=== PATIENT | female | born 1970 | race Caucasian/White ===

== ENCOUNTER 2017-02-27 09:02 | Inpatient (IN) ==
[2017-02-27 09:30] LABS: Basophils % 0.3 %; Eosinophils # 0.2 K/mcL (0.0-0.6); Eosinophils % 1.7 %; Hematocrit 35.4 % (35.3-44.9); Hemoglobin 10.6 g/dL (11.5-15.4); Immature Granulocytes % 0.3 % (0-4); Lymphocytes # 1.6 K/mcL (0.6-4.6); Lymphocytes % 16.4 %; Mean Corpuscular HGB Conc 29.9 g/dL (31.6-35.5); Mean Corpuscular Hemoglobin 22.1 pg (28.0-33.3); Mean Corpuscular Volume 73.8 fL (83.0-100.0); Mean Platelet Volume 9.3 fL (9.4-12.4); Monocytes # 0.6 K/mcL (0.0-1.3); Monocytes % 5.9 %; Neutrophils # 7.1 K/mcL (1.6-8.9); Platelet Count 338 K/mcL (140-400); Red Cell Distribution Width 19.6 % (11.5-14.5); Segmented Neutrophils % 75.4 %
[2017-02-27 09:37] LABS: INR 0.9; Prothrombin Time 10.1 Seconds (9.4-12.1)
[2017-02-27 09:40] LABS: Activated Partial Thrombo Time 26.1 Seconds (26.0-36.0)
[2017-02-27 09:42] LABS: BUN/Creatinine Ratio 20 (6-26); Blood Urea Nitrogen 16 mg/dL (7-20); Carbon Dioxide 16 mEq/L (19-29); Chloride 105 mEq/L (98-109); Glucose 122 mg/dL (70-99); Osmolality,Calculated 288 (280-300); Potassium 4.2 mEq/L (3.5-4.5); Sodium 138 mEq/L (136-145); eGFR For African Americans > 60 (> 60); eGFR For Non-African Americans > 60 (> 60)
[2017-02-27] MEDS ORDERED: 0.9 % Sodium Chloride 500 ML ONE (09:43)
[2017-02-27] MEDS: Nitroglycerin 0.4 MG TAB.SUBL SL PRN ×3 (09:46→10:24)
[2017-02-27] MEDS: 0.9 % Sodium Chloride 1,000 ML IVC SCH ×2 (09:47→23:44)
[2017-02-27] MEDS ORDERED: Aspirin 81 MG TAB.CHEW PO STA (09:54)
[2017-02-27 10:03] LABS: Thyroid Stimulating Hormone 0.139 mcIU/mL (0.350-4.840)
--- NOTE | 2017-02-27 10:24 | Emergency Department Note ---
Disposition Clinical Impression: Elevated troponin, NSTEMI (non-ST elevated myocardial infarction) Chest pain Qualifiers: Chest pain type: other chest pain Qualified Code(s): R07.89 - Other chest pain Disposition: Admitted As Inpatient Condition: Good Time of Disposition: 11:24 Chest Pain HPI - General Chief Complaint: ED Chest Pain Stated Complaint: chest pain Time Seen by Provider: 02/27/17 09:08 Source: patient Limitations: no limitations Vital Signs Reviewed: Yes Nursing Notes Reviewed: Yes - History of Present Illness HPI Narrative: 47-year-old female half pack per day smoker and hypothyroidism presents with chest pain. States it started at 530 this morning upon awakening, associated diaphoresis, nausea, shortness of breath. She states she had a similar episode a month ago around , symptoms subsided after several hours. Nothing seems to make it better or worse. She continues to have discomfort at this time. Describes as a squeezing sensation located retrosternal with tingling down her arms. She reports sometimes she feels palpitations. She is compliant with her thyroid medication. Reports significant family cardiac history, father had a myocardial infarction age 35. She denies any prior cardiac evaluation. She denies any recent fever or chills. Denies any abdominal pain, vomiting. Denies any bloody stool, black tarry stools, and hemoptysis. She has been experiencing some hot flashes and takes an over-the- counter Amrin denies any hormone use. Denies history of blood clots, cancer, long-distance travel or hospitalization. Severity scale (1-10): 9 - Related Data Home Medications Medication Instructions Recorded Confirmed Amberen 1 tab PO DAILY 02/27/17 Levothyroxine Sodium 150 mcg PO DAILY 02/27/17 02/27/17 [Levothyroxine Sodium] Allergies Allergy/AdvReac Type Severity Reaction Status Date / Time No Known Allergies Allergy Verified 02/27/17 09:06 All systems ED: reviewed and negative except as stated. Review of Systems: As Per HPI Constitutional: Denies: fever, chills ENT ED: Denies: congestion, dysphagia Cardiovascular: Reports: chest pain, palpitations. Denies: dyspnea on exertion Respiratory: Reports: dyspnea. Denies: cough Gastrointestinal: Reports: nausea. Denies: abdominal pain, vomiting, melena, hematochezia Genitourinary: Denies: urgency, dysuria Musculoskeletal: Denies: back pain, neck pain Integumentary: Denies: rash Neurological: Denies: headache Chest Pain PMH - Past Medical History Medical history: Reports: no medical history Psychiatric history: Reports: no psych history - Social History Smoking Status: Current every day smoker Alcohol use: Reports: occasionally Drug use: Reports: none Physical Exam - General Limitations: no limitations General appearance: alert, in no apparent distress - Head Head exam: atraumatic, normocephalic, normal inspection - Eye Eye exam: Present: normal appearance, PERRL, EOMI - ENT ENT exam: normal exam, normal oropharynx, mucous membranes moist - Neck Neck exam: Present: normal inspection, full ROM, trachea midline. Absent: tenderness - Chest Chest inspection: Present: normal inspection, symmetric chest wall rise, tenderness (Midsternal) - Respiratory Respiratory exam: Present: normal lung sounds bilaterally. Absent: respiratory distress, wheezes - Cardiovascular Cardiovascular exam: Present: regular rate, normal rhythm, normal heart sounds - Abdominal Exam Abdominal exam: Present: soft, Non-Tender, normal bowel sounds. Absent: tenderness, distention, guarding, rebound, rigidity - Extremities Exam Extremities exam: Present: normal inspection, full ROM, normal capillary refill. Absent: tenderness, pedal edema, calf tenderness - Back Exam Back exam: Present: normal inspection, full ROM. Absent: tenderness, CVA tenderness (R), CVA tenderness (L), vertebral tenderness - Neurological Exam Neurological exam: Present: alert, oriented X3 - Psychiatric Psychiatric exam: Present: normal affect, normal mood - Skin Skin exam: Present: warm, dry, intact, normal color. Absent: diaphoresis Course - Reevaluation(s) Reevaluation #1: Patient had a elevated troponin 0.17. Full dose aspirin was given here. After a total of 3 nitro her pain resolved. A repeat EKG did not reveal any EKG changes. No significant ST elevation consistent with STEMI. She denies any bloody stool, black tarry stool, hemoptysis. Will treat her for elevated troponin and NSTEMI low-dose heparin. Patient has been tachycardic 100. D dimer was ordered to evaluate for possible PE, result 295. Patient will be admitted to the hospitalist service for chest pain, NSTEMI. Patients in agreement with plan. Impression is chest pain, NSTEMI, elevated troponin. - Consultations Consultation #1: Spoke with a starch cooker Dr. Cuello regarding the patient's troponin and EKG with subtle ST elevation, recommend low-dose heparin and to trend the troponin. Consultation #2: Spoke with on-call hospitalist sheela Vyas to admit for chest pain, NSTEMI, elevated troponin. No further orders at this time Vital Signs Temperature 98.3 F 02/27/17 09:03 Pulse Rate 103 02/27/17 09:03 Respiratory Rate 18 02/27/17 09:03 Blood Pressure 142/64 02/27/17 09:03 O2 Sat by Pulse Oximetry 99 02/27/17 09:03 Temperature 98.7 F 02/27/17 13:58 Pulse Rate 85 02/27/17 17:00 Respiratory Rate 20 02/27/17 17:00 Blood Pressure 120/62 02/27/17 17:00 O2 Sat by Pulse Oximetry 98 02/27/17 17:00 Oxygen Delivery Oxygen Delivery Room Air Chest Pain - MDM Narrative Medical decision making narrative: Patient was discussed with my attending physician who agrees with ED management and final disposition. They independently evaluated the patient. Please refer to their attestation to this encounter for additional information. This note was generated by [employer] voice recognition software and as a result grammatical or spelling errors may occur using this program. - Medical Records Medical records reviewed: Yes I reviewed the patient's medical records. - Lab Data Lab results reviewed: Yes I reviewed the patient's lab results. Result diagrams: 02/27/17 09:23 02/27/17 09:23 Lab Results 02/27/17 02/27/17 02/27/17 Range/Units 09:23 09:23 09:23 WBC 9.4 (4.3-11.1) K/mcL RBC 4.80 (3.82-4.97) M/mcL Hgb 10.6 L (11.5-15.4) g/dL Hct 35.4 (35.3-44.9) % MCV 73.8 L (83.0-100.0) fL MCH 22.1 L (28.0-33.3) pg MCHC 29.9 L (31.6-35.5) g/dL RDW 19.6 H (11.5-14.5) % Plt Count 338 (140-400) K/mcL MPV 9.3 L (9.4-12.4) fL Immature Gran % 0.3 (0-4) % Seg Neutrophils % 75.4 % Lymphocytes % 16.4 % Monocytes % 5.9 % Eosinophils % 1.7 % Basophils % 0.3 % Neutrophils # 7.1 (1.6-8.9) K/mcL Lymphocytes # 1.6 (0.6-4.6) K/mcL Monocytes # 0.6 (0.0-1.3) K/mcL Eosinophils # 0.2 (0.0-0.6) K/mcL Basophils # 0.0 (0.0-0.2) K/mcL PT 10.1 (9.4-12.1) Seconds INR 0.9 APTT 26.1 (26.0-36.0) Seconds D-Dimer 295 (0-500) ng/mLFEU Sodium 138 (136-145) mEq/L Potassium 4.2 (3.5-4.5) mEq/L Chloride 105 (98-109) mEq/L Carbon Dioxide 16 L (19-29) mEq/L BUN 16 (7-20) mg/dL Creatinine 0.80 (0.57-1.11) mg/dL Est GFR ( Amer) > 60 (> 60) Est GFR (Non-Af Amer) > 60 (> 60) BUN/Creatinine Ratio 20 (6-26) Glucose 122 H (70-99) mg/dL Calculated Osmolality 288 (280-300) Calcium 10.0 (8.6-10.8) mg/dL Troponin I (0-0.03) ng/mL TSH 0.139 L (0.350-4.840) mcIU/mL 02/27/17 Range/Units 09:23 WBC (4.3-11.1) K/mcL RBC (3.82-4.97) M/mcL Hgb (11.5-15.4) g/dL Hct (35.3-44.9) % MCV (83.0-100.0) fL MCH (28.0-33.3) pg MCHC (31.6-35.5) g/dL RDW (11.5-14.5) % Plt Count (140-400) K/mcL MPV (9.4-12.4) fL Immature Gran % (0-4) % Seg Neutrophils % % Lymphocytes % % Monocytes % % Eosinophils % % Basophils % % Neutrophils # (1.6-8.9) K/mcL Lymphocytes # (0.6-4.6) K/mcL Monocytes # (0.0-1.3) K/mcL Eosinophils # (0.0-0.6) K/mcL Basophils # (0.0-0.2) K/mcL PT (9.4-12.1) Seconds INR APTT (26.0-36.0) Seconds D-Dimer (0-500) ng/mLFEU Sodium (136-145) mEq/L Potassium (3.5-4.5) mEq/L Chloride (98-109) mEq/L Carbon Dioxide (19-29) mEq/L BUN (7-20) mg/dL Creatinine (0.57-1.11) mg/dL Est GFR ( Amer) (> 60) Est GFR (Non-Af Amer) (> 60) BUN/Creatinine Ratio (6-26) Glucose (70-99) mg/dL Calculated Osmolality (280-300) Calcium (8.6-10.8) mg/dL Troponin I 0.17 H* (0-0.03) ng/mL TSH (0.350-4.840) mcIU/mL - Radiology Data Radiology results reviewed: Yes I reviewed the patient's radiology results. Chest X-Ray 02/27/17 09:11 IMPRESSION: 1. No acute radiographic finding in the chest. D/ / Sumit Frausto MD / Sumit Frausto MD Interpreting Provider: Sumit Frausto MD - EKG Data EKG attestation: Yes I reviewed and interpreted this EKG. EKG results narrative: EKG performed normal sinus rhythm, normal axis, some minimal ST changes in the septal leads red as benign repolarization. Repeat EKG performed did not show any interval dynamic changes. No ST elevations or depression. No T wave inversion. No acute ischemia seen on EKG. Chest X-Ray 02/27/17 09:11 IMPRESSION: 1. No acute radiographic finding in the chest. D/ / Sumit Frausto MD / Sumit Frausto MD Interpreting Provider: Sumit Frausto MD Heart Score - Score History: Moderately Suspicious EKG: Normal Age: 45-65 Risk Factors: 1-2 risk factors Troponin: Greater than 3x normal limit HEART Score Total: 5 Attestation Statement - Attestation Attestation: I, Andrea Brand, examined this patient and my medical decision-making was reviewed with the [employer] LIAISON AND SPECIAL STAFF/PA/Advanced Practice Nurse/Resident Physician. I agree with the documented findings, disposition and treatment plan as described except to the extent set forth below. 47-year-old female presents emergency Department with concerns of acute onset chest pain. Patient states she had a similar occurrence within the past 2 weeks that lasted multiple hours and left her weak and fatigued afterwards. Patient states symptoms started about 8 AM today, described as a central pressure that radiates to her bilateral jaw and has paresthesias of the left upper extremity. Initial EKG showed normal sinus rhythm with a rate of 99 without obvious STEMI. Repeat EKG showed a normal sinus rhythm with a rate of 77. Patient had elevated troponin and resident spoke with the starch cooker regarding likely an STEMI. Patient pain improved significantly with nitroglycerin in the emergency department. She will be admitted to hospital for further care and evaluation of her likely NSTEMI.
[2017-02-27] MEDS ORDERED: *HR* Heparin 5,000 UNIT/ML VIAL IVP PRN ×2 (10:38)
[2017-02-27] MEDS ORDERED: *HR* Heparin 5,000 UNIT/ML VIAL IVP ONE (10:38)
[2017-02-27] MEDS ORDERED: Heparin 25,000 UNIT/500 ML D5W 25,000 UNIT/500 ML MLS IVC SCH (10:45)
[2017-02-27] MEDS ORDERED: *HR* Morphine 2 MG/ML SYRINGE IVP PRN (11:24)
[2017-02-27] MEDS ORDERED: Ondansetron 4 MG/2 ML VIAL IVP PRN (11:24)
[2017-02-27] MEDS ORDERED: Naloxone 0.4 MG/ML INJ IVP PRN (11:24)
[2017-02-27] MEDS ORDERED: *HR* HYDROcodone/Acet 5/325 mg TABLET PO PRN (11:24)
--- NOTE | 2017-02-27 11:45 | Internal Med History&Physical ---
Date of Encounter: 02/27/17 Time of Encounter: 10:30 Assessment and Plan (1) Chest pain Current visit: Yes Status: Acute Acute chest pain that pt. states began at 5 a.m. this morning and she describes as constant squeezing pressure in her heart w/radiation to bilateral arms causing numbness and tingling and bilateral jaws. Pt. reports same chest pain occurred the week before Thanksgiving. Denies previous cardiac hx, echocardiogram, stress test, angioplasty or stent placement. EKG today shows sinus rhythm with ST elevation, probably early repolarization. Initial troponin 0.17. Pt. given SL nitro x3 in ED and reports pain went from 8 to 4. Will trend troponin x2. Echocardiogram ordered stat. Continuous cardiac telemetry. Supplemental O2 and SpO2 monitoring PRN. Heparin drip started in ED and will be continued. NPO for now. Cardiology consult ordered and discussed w/Dr. Cuello's resident and I appreciate the consult. Pt. is at high risk for cardiac event based on current sx, risk factors of current tobacco abuse and father w/first CT @ 35, and hx of previous chest pain several weeks ago. Inpatient. Pt. discussed w/Dr. Youngblood who agrees w/plan of care. Qualifiers: Chest pain type: other chest pain Qualified Code(s): R07.89 - Other chest pain; R07.8 - Other chest pain (2) NSTEMI (non-ST elevated myocardial infarction) Current visit: Yes Status: Acute Pt. presents w/initial troponin of 0.17 and chest pressure that began at 5 a.m. this morning. Pt. describes pain as squeezing pressure in her heart w/radiation to bilateral arms causing numbness and tingling and bilateral jaws. Denies cardiac hx. Father had first CT @35. Echocardiogram ordered. Continuous cardiac telemetry. Will trend troponins x2. Cardiology consult ordered and discussed w/ Dr. Cuello's resident. Heparin drip started in ED. NPO for now. Heparin drip initiated in the ED and will be continued. EKG today shows sinus rhythm with ST elevation, probably early repolarization. (3) Abnormal hemoglobin (Hgb) Current visit: Yes Status: Acute Acutely abnormal Hgb of 10.6 on admission. Pt. denies hx of anemia or unusual bleeding. Will monitor H/H in a.m. labs. (4) Thyroid disease Current visit: Yes Status: Chronic Hx of chronic thyroid disease. Current TSH is 0.139 on admission. Continue pts. Levothyroxine. (5) Tobacco abuse Current visit: Yes Status: Chronic Hx of tobacco abuse. Pt. reports currently smoking 1/2 PPD. 14 mg nicotine patch ordered daily PRN. (6) DVT prophylaxis Current visit: Yes Status: Acute Pt. placed on heparin drip d/t current troponin of 0.17. Monitor pt. for signs of bleeding. Internal Medicine - H&P: HPI Chief complaint: Chest pain Admitted From: Emergency Dept Plans for Post Hospital Care: Home History of present illness: Ms. Gi Warner is a 47 year old female with medical hx of thyroid disease presents from the ED with chief complaint of chest pain that she states began at 5 a.m. this morning. Pt. describes the pain as squeezing pressure in her heart that is constant and that radiates to her bilateral arms causing numbness and tingling and to her bilateral jaws. She reports same sx the week before giving. Pt. was given nitro x3 in ED which she reports took pain from 8 to a 4. Denies hx of echocardiogram, stress test, angioplasty, or stent placement. Risk factors include current tobacco abuse and father had first CT @ age 35. Pt. denies recent illness, fever, chills, nausea, vomiting, diarrhea, constipation, heart palpitations, changes in vision, cough, abdominal pain, unusual bleeding, dizziness, lightheadedness, presyncope, or syncope. Past Med Surg Social Fam HX - Past Medical History Source: patient, old records reviewed, obtained from family Medical history: thyroid disease Psychiatric history: no psych history - Social History Smoking Status: Current every day smoker Packs per day: 1/2 PPD Smokeless Tobacco Status: No Alcohol use: occasionally Drug use: none Occupational status: employed Current living situation: Home, With Family Activity Level: Independent ambulation, Very active Recent Out of Country Travel Within the Last 8 Weeks: No Exposure or Possible Exposure to Illness During Travel: No - Family History Father Race: Family Member Ethnicity: Non- Living Status: Still Living Hx Family Cardiac Disorders: Yes (CT @35, Bypass surgery, Angioplasty/stents) Hx Family Endocrine Disorder: Yes (DM) Mother Race: Family Member Ethnicity: Non- Living Status: Still Living Hx Family Cardiac Disorders: Yes (TIAs) Hx Family Genitourinary Disorders: Yes (CKD) Hx Family Musculoskeletal Disorders: Yes (Fibromyalgia) Brother Race: Family Member Ethnicity: Non- Living Status: Still Living Hx Family Cardiac Disorders: Yes (CAD) Internal Medicine - H&P: Meds Amberen 1 tab PO DAILY 02/27/17 [History] Levothyroxine Sodium [Levothyroxine Sodium] 150 mcg PO DAILY 02/27/17 [History] 3 Allergy/AdvReac Type Severity Reaction Status Date / Time No Known Allergies Allergy Verified 02/27/17 09:06 All Systems PM: A 10-system review of systems was performed and is negative for pertinent findings except as documented above in the HPI. - Constitutional Constitutional: no chills, no fever(s), no night sweats - EENT Eyes: no change in vision, no discharge, no pain, no photophobia Ears: no ear discharge, no ear pain, no tinnitus Nose, mouth and throat: no dysphagia, no nasal discharge, no neck pain, no sore throat - Breasts Breasts: as per HPI - Cardiovascular Cardiovascular ROS IM: as per HPI, chest pain - Respiratory Respiratory: no cough, no dyspnea, no wheezing, no excessive phlegm production - Gastrointestinal Gastrointestinal: no abdominal pain, no diarrhea, no hematemesis, no hematochezia, no melena, no nausea, no vomiting - Genitourinary Genitourinary: no change in urinary stream, no dysuria, no flank pain, no hematuria Menstruation: as per HPI - Musculoskeletal Musculoskeletal ROS IM: no numbness, no tingling - Integumentary Integumentary IM: no rash, no unusual bruising - Neurological Neurological ROS: no confusion, no convulsions, no focal weakness, no numbness, no tingling, no tremor(s) - Psychiatric Psychiatric: as per HPI - Endocrine Endocrine IM: as per HPI - Hematologic/Lymphatic Hematologic/Lymphatic: no easy bruising - Allergic/Immunologic Allergic/Immunologic: as per HPI - Constitutional Vitals: Temp Pulse Resp BP Pulse Ox 98.3 F 86 18 134/78 98 02/27/17 09:03 02/27/17 10:25 02/27/17 11:35 02/27/17 11:35 02/27/17 10:25 General appearance: Present: cooperative, mild distress (Chest pressure), A&O X 3, pleasant, obese, answers questions appropriately - Head Head exam: Present: atraumatic, normal inspection, normocephalic - Eye Eye exam: Present: PERRL, conjuntiva pink, sclera anicteric Pupils: Present: PERRL - ENT ENT exam: Present: normal exam, normal external ear exam - Neck Neck exam general surgery: Present: normal inspection, supple, trachea midline. Absent: lymphadenopathy - Respiratory Respiratory exam: Present: CTAB. Absent: accessory muscle use, rales, rhonchi, wheezes - Cardiovascular Cardiovascular exam: Present: RRR, +S1, +S2. Absent: diastolic murmur, gallop, rubs, systolic murmur - GI/Abdominal GI/Abdominal exam: Present: normal bowel sounds, soft, no peritoneal signs. Absent: distended, tenderness - Rectal Rectal exam: Present: deferred - Additional comments: exam deferred. - Extremities Exam Extremities exam: Present: warm, radial pulses palpable and symmetrical. Absent : calf tenderness, cyanotic, pedal edema - Back Exam Back exam: Present: normal inspection - Neurological Exam Neurological exam: Present: CN II-XII intact, oriented X3, no focal deficits. Absent: pronater drift, facial droop, speech deficit - Psychiatric Psychiatric exam: Present: normal affect, normal mood - Skin Skin exam: Present: dry, intact Internal Med - H&P Results - Labs CBC & Chem 7: 02/27/17 09:23 02/27/17 09:23 - EKG Data EKG shows normal: sinus rhythm - EKG Data Prior EKG available for review: yes When compared to previous EKG: there is no significant change EKG comments: 02/27/17 11:50 Three sequential EKGs taken today (02/27/17) at 09:07, 09:16, and 10:02 show sinus rhythm with ST elevation, probably early repolarization (EST elevation with normally inflected T-wave). Borderline ECG. - Diagnostic Studies Chest x-ray Additional comments: Impressions Chest X-Ray 02/27/17 09:11 IMPRESSION: 1. No acute radiographic finding in the chest. D/ / Sumit Frausto MD / Sumit Frausto MD Interpreting Provider: Sumit Frausto MD
--- NOTE | 2017-02-27 12:19 | Pre-Sedation Evaluation ---
Pre-sedation evaluation - Pre-sedation checklist Date of procedure: 02/27/17 Procedure: [facility] Recent Vitals: Last Vital Signs Temp 98.3 F 02/27/17 09:03 Pulse 86 02/27/17 10:25 Resp 18 02/27/17 11:35 BP 134/78 02/27/17 11:35 Pulse Ox 98 02/27/17 10:25 H&P (including ROS) documented in medical record: Yes Previous reaction to sedatives/anesthetics: No Dietary Status: Clear fluids after Midnight Airway Assessment: Patient can open mouth completely, TMJ function normal, Micrognathia (under-bite, receding chin) absent, Neck with adequate range of motion Dentition: No loose teeth or bridges Possible difficult airway: No ASA Classification *see protocol: CLASS II-Mild systemic disease Plan of Care: Pt appropriate candidate for procedure/moderate/conscious sedation , Risks/benefits of procedure/sedation discussed w/ patient/family
--- NOTE | 2017-02-27 12:20 | Cardiology Consult Note ---
<Cary Peña - Last Filed: 02/27/17 12:21> Date of Encounter: 02/27/17 Time of Encounter: 12:00 Assessment and Plan (1) NSTEMI (non-ST elevated myocardial infarction) Current Visit: Yes Status: Acute Per cardiology: -Presented with chest pain. -Initial troponin 0.17. -ECG with ST segment changes noted in leads I, aVL, V5, V6. -Admits to current chest pain, rates 3/10. -ON heparin drip. -TTE pending. -Started asa, statin, beta nancy. -Plan for urgent LHC. Risks versus benefits of LHC explained to patient and family. Patient states understanding and agreeable to proceed. -Further recommendations pending LHC. (2) Tobacco abuse Current Visit: Yes Status: Chronic Per cardiology: -Admits to current smoking. -Nicotine patch ordered per primary service. -I spent 3 minutes reviewing smoking cessation education with patient. Discussion w patient/family: The assessment and plan as outlined above was discussed with the patient and/or family members who expressed understanding and agreement. All questions were answered. Thank you for involving us in the care of your patient. Please call with any questions. Discussed and reviewed with . History of Present Illness Consult date: 02/27/17 Requesting physician: Michael Biswas Consult reason: elevated troponin Chief complaint: chest pain History of present illness: Ms. Gi Warner is a 47 year old female with a relevant past medical history of smoking. Patient reports family history of CAD with father having WI at age 25 that required CABG. Patient reports over the past couple of months has had intermittent chest pain. Patient states pain typically occurs at rest. Patient states was awaken this morning about 0530 by sharp midsternal chest pain. Patient states pain was a 9/10. Denies aggravating or alleviating factors. Reports associated nausea. Patient states has current 3/10 chest pain. Patient states pain was lessened by nitro. Past Med Surg Social Fam HX - Past Medical History Attestation: Yes The following information was validated with the patient. Source: patient Medical history: thyroid disease Psychiatric history: no psych history - Social History Smoking Status: Current every day smoker Packs per day: 1/2 PPD Smokeless Tobacco Status: No Alcohol use: occasionally Drug use: none - Family History Father Race: Family Member Ethnicity: Non- Living Status: Still Living Hx Family Cardiac Disorders: Yes (WI @35, Bypass surgery, Angioplasty/stents) Hx Family Endocrine Disorder: Yes (DM) Mother Race: Family Member Ethnicity: Non- Living Status: Still Living Hx Family Cardiac Disorders: Yes (TIAs) Hx Family Genitourinary Disorders: Yes (CKD) Hx Family Musculoskeletal Disorders: Yes (Fibromyalgia) Brother Race: Family Member Ethnicity: Non- Living Status: Still Living Hx Family Cardiac Disorders: Yes (CAD) Medications and Allergies Amberen 1 tab PO DAILY 02/27/17 [History] Levothyroxine Sodium [Levothyroxine Sodium] 150 mcg PO DAILY 02/27/17 [History] 3 Allergy/AdvReac Type Severity Reaction Status Date / Time No Known Allergies Allergy Verified 02/27/17 09:06 All Systems Review: A 10-system review of systems was performed and is negative for pertinent findings except as documented above in the HPI. - Cardiovascular Cardiovascular: as per HPI, chest pain at rest - Gastrointestinal Gastrointestinal: nausea Physical Examination Vital Signs, Last 4 Hours Resp BP 02/27/17 11:35 18 134/78 General: Conversant, No Apparent Distress HEENT: Atraumatic, Normocephaly, Mucus Membranes Moist Neck: No JVD, Normal carotid pulses Cardiac: Reg Rate and Rhythm, Normal S1 and S2, No Murmur Lungs: Normal Breath Sounds, No Wheeze, Rales, Rhonchi Neuro: Alert and responsive, No focal deficits noted Abdomen: Soft, Non-Tender Skin: No rashes noted on visualized skin Musculoskeletal: No Chest Wall Tenderness Extremities: No Clubbing, No Cyanosis, No Edema, Normal Pulses Results 02/27/17 09:23 02/27/17 09:23 Impressions Chest X-Ray 02/27/17 09:11 IMPRESSION: 1. No acute radiographic finding in the chest. D/ / Sumit Frausto MD / Sumit Frausto MD Interpreting Provider: Sumit Frausto MD Active Medications Acetaminophen (Tylenol) 650 mg PO Q6HR PRN PRN Reason: Mild Pain (1-3) Stop: 08/29/17 11:25 Hydrocodone Bitart/Acetaminophen (Barton 5-325 Mg) 1 tab PO Q4HR PRN PRN Reason: Moderate Pain (4-6) Stop: 08/29/17 11:25 Aspirin (Aspirin Ec) 81 mg PO DAILY [facility] Stop: 08/30/17 09:01 Atorvastatin Calcium (Lipitor) 40 mg PO HS [facility] Stop: 08/29/17 21:01 Heparin Sodium (Porcine) (Heparin) 4,000 unit IVP Q6HR PRN PRN Reason: SEE COMMENTS Stop: 08/29/17 10:39 Heparin Sodium (Porcine) (Heparin) 2,000 unit IVP Q6H PRN PRN Reason: SEE COMMENTS Stop: 08/29/17 10:39 Sodium Chloride (0.9 % Sodium Chloride) 1,000 mls @ 75 mls/hr IVC .[id number] [facility] Stop: 08/29/17 09:46 Last Admin: 02/27/17 09:47 Dose: 75 mls/hr Heparin Sodium/Dextrose (Heparin 25,000 Unit/500 Ml D5w) 25,000 unit in 500 mls @ 17.962 mls/hr IVC .Q24H [facility]; 12 UNIT/KG/HR PRN Reason: Protocol Stop: 08/29/17 10:46 Last Admin: 02/27/17 11:06 Dose: 12 unit/kg/hr, 17.962 mls/hr Levothyroxine Sodium (Synthroid) 150 mcg PO DAILY [facility] Stop: 08/30/17 09:01 Metoprolol Tartrate (Lopressor) 12.5 mg PO BID [facility] Stop: 08/29/17 21:01 Morphine Sulfate (Morphine Sulfate) 2 mg IVP Q4HR PRN PRN Reason: Severe Pain (7-10) Stop: 08/29/17 11:25 Last Admin: 02/27/17 12:07 Dose: 2 mg Naloxone HCl (Narcan) 0.4 mg IVP Q2MIN PRN PRN Reason: Opioid Reversal Stop: 08/29/17 11:25 Nicotine (Nicoderm) 14 mg TD DAILY [facility] PRN Reason: Protocol Stop: 08/29/17 12:01 Nitroglycerin (Nitroglycerin) 0.4 mg SL Q5MIN PRN PRN Reason: Chest Pain Stop: 06/09/18 09:32 Last Admin: 02/27/17 10:24 Dose: 0.4 mg Ondansetron HCl (Zofran) 4 mg IVP Q8HR PRN PRN Reason: Nausea And Vomiting Stop: 08/29/17 11:25 Laboratory Tests 02/27/17 02/27/17 02/27/17 09:23 09:23 09:23 Hgb 10.6 L Creatinine 0.80 Troponin I 0.17 H* - Imaging and Cardiology Chest Xray: report reviewed Echo: pending Cardiac cath: pending - EKG Interpretation EKG results cardiology: personally reviewed (ECG with SR, HR 99. ST segment changes noted in leads I, V5 and V6.) Consult Discharge Plan - Plan Referrals: Onur Foley MD [Primary Care Provider] - <Bne Cuello - Last Filed: 02/27/17 12:54> Date of Encounter: 02/27/17 - Attending Attestation I have personally performed a face to face evaluation on this patient. I have reviewed and agree with the care plan. History and Exam by me shows: 47 YOF with unstable angina, stuttering WI with lateral EKG changes and ongoing CP. R/B/A D/W patient and she agrees to proceed with a C. Assessment and Plan Discussion w patient/family: The assessment and plan as outlined above was discussed with the patient and/or family members who expressed understanding and agreement. All questions were answered. Thank you for involving us in the care of your patient. Please call with any questions. History of Present Illness History of present illness: Ms. Gi Warner is a 47 year old female All Systems Review: A 10-system review of systems was performed and is negative for pertinent findings except as documented above in the HPI. Physical Examination Vital Signs, Last 4 Hours Temp Pulse Resp BP Pulse Ox 02/27/17 12:22 98.6 F 87 18 130/85 96 02/27/17 11:35 18 134/78 Results 02/27/17 09:23 02/27/17 09:23
[2017-02-27] MEDS ORDERED: Nitroglycerin 1,000 MCG/10 ML VIAL IV ONE (12:30)
[2017-02-27] MEDS ORDERED: *HR* Heparin 10,000 UNIT/10 ML VIAL ONE (12:30)
[2017-02-27] MEDS ORDERED: Heparin 1,000 UNITS/500 mL NS 500 ML ONE (12:30)
[2017-02-27] MEDS ORDERED: 0.9 % Sodium Chloride 1,000 ML ONE ×2 (12:30→13:00)
[2017-02-27] MEDS ORDERED: *HR* FentaNYL (PF) 100 MCG/2 ML VIAL ONE (12:58)
[2017-02-27] MEDS ORDERED: *HR* Midazolam HCl 2 MG/2 ML VIAL ONE (12:58)
[2017-02-27] MEDS ORDERED: *HR* Bivalirudin 250 MG VIAL IVC ONE (13:12)
[2017-02-27] MEDS ORDERED: *HR* Ticagrelor 90 MG TABLET ONE (13:26)
--- NOTE | 2017-02-27 13:49 | Invasive Diagnostic Lab Proc ---
Name: Hilda Wang Date of Study: 02/27/2017 Date: 1970 Ht: 61.8in Medical Record#: [id number] Age: 47 Wt: 163.14lb Gender: Female BSA: 1.75 Order #: [id number] BMI: 30.02 Physicians Procedure Physician: Meenu Tay MD, [facility] Referring MD: Referring MD: Staff Name Position Time In Sites, Rachel RT (R) Monitor 12:46 PM Pastor Hernandez RN Kiss Setter Hand 12:47 PM Jannet Das RT Scrub 12:47 PM Indications Indication Non-Stemi Procedures Performed Procedure L HRT ARTERY/VENTRICLE ANGIO PRQ CARD TOM STENT W/ANGIO 1 VSL Pre-Procedure Checklist Informed consent is complete signed and on chart. H&P is on chart. ID band is on and ID verified with patient. Patient NPO for procedure The procedure was described for the patient and questions were answered. Blood Pressure: 130/85 ECG is on chart. Rhythm: NSR Plan of Care Patient will tolerate the procedure without complications. Adequate level of comfort will be maintained. Hemodynamics will remain stable Patient will recover from procedure without complications. Respiratory function will be maintained. Cardiac rhythm will remain stable. Patient temperature will be maintained. Patient and/or family have verbalized understanding of the procedure. Patient Education Chief Complaint/Reason for Test: Cardiac Cath Developmental Category: Adult (18-64 years) Developmentally Appropriate for Age: Yes Learning Barriers: None Education Needs: Procedure Education Method: Verbal Information Taught: Cardiac Cath Educational Evaluation: Able to repeat information Intravenous Access Time IV Size Location DC'd Fluid/Drip Rate Units RN 20g 1 /" Patent On Arrival Lt Antecubital 0.9NaCl 25 ml/hr Pastor Hernandez RN Allergies No Known Allergies Vital Signs Time BP (mmHg) HR (bpm) O2 Sat. RR (bpm) LOC 12:54 PM 155 / 93 190 100 % 10 12:59 PM 153 / 84 95 99 % 33 01:04 PM 145 / 76 96 100 % 21 01:09 PM 138 / 79 99 100 % 21 01:14 PM 140 / 89 98 100 % 17 01:20 PM 160 / 134 96 100 % 14 01:25 PM 154 / 84 96 99 % 01:30 PM 141 / 98 103 100 % 21 Procedural Medications Time Medication Dose Units Method Given By 12:54 PM Oxygen 2 L/min nasal cannula Pastor Hernandez RN 01:03 PM Versed 2 mg Intravenous Pastor Hernandez RN 01:03 PM Fentanyl 50 mcg Intravenous Pastor Hernandez RN 01:03 PM Lidocaine 2% 20 ml Subcutaneous Meenu Tay MD, FAC 01:22 PM Nitroglycerin 200 mcg Intracoronary Meenu Tay MD, FAC 01:29 PM Reopro Bolus: 9.2 ml Intravenous Pastor Hernandez RN 01:29 PM Brilinta 180 mg Orally Pastor Hernandez RN ASA Classification: CLASS II- Mild systemic disease (i.e. well-controlled diabetes, hypertension, asthma, cigarette smoking) Shanon Score Preprocedure Postprocedure Activity 2- Moves 4 extremities sustained head lift Activity 2- Moves 4 extremities sustained head lift Circulation 2- SBP +/= 20 points of pre-anesthetic level Circulation 2- SBP +/= 20 points of pre-anesthetic level Consciousness 2- Awake and alert oriented x 3 Consciousness 2- Awake and alert oriented x 3 O2 Saturation 2- Able to maintain O2 satruation of 92% on room air O2 Saturation 2- Able to maintain O2 satruation of 92% on room air Respiratory 2- Able to deep breathe and cough well Respiratory 2- Able to deep breathe and cough well Total Score 10 Total Score 10 Contrast Agent: Isovue Diagnostic Contrast: 151 ml Total Contrast: 151 ml Fluoro Dose: 348 mGy Procedure Log Time Note Enter By 12:45 PM CathStat 12:46 PM Pt arrived to refuse laborer 2 at 12:46 [email or web address] 12:46 PM Rachel Arteaga RT (R) Position: Monitor Time in: 12:46 [email or web address] 12:47 PM Pastor Hernandez RN Position: Kiss Setter Hand Time in: 12:47 [email or web address] 12:47 PM Jannet Das RT Position: Scrub Time in: 12:47 [email or web address] 12:47 PM Patient charges- Angio tray pack, Navilyst 3mm J, Pulse Oximetry and ACIST tubing and transducer [email or web address] 12:47 PM Case Delayed No [email or web address] 12:47 PM Physician arrived 12:47 [email or web address] 12:47 PM Meet and greet completed [email or web address] 12:47 PM Sign in performed according to hospital policy. [email or web address] 12:47 PM Procedure start 12:47 [email or web address] 12:54 PM Vitals capture started with the following parameters, Patient=Adult, Interval=5 min, Initial Zaqkjmiq=386 mmHg, Deflation Rate=5 mmHg, Cuff placed on Right Arm 12:54 PM Time: 12:54 Oxygen on at 2 L/min per nasal cannula by Pastor Hernandez RN tsites 12:54 PM MD=061 bpm, VHEB=195/93 mmhg, UbH5=404.0 %, Resp=10 B/min 12:56 PM Recorded ECG: DF=883 Condition=Condition 1 12:59 PM HR=95 bpm, MWIE=373/84 mmhg, SpO2=99.0 %, Resp=33 B/min 01:02 PM Pressure channel 1 zero failed. 01:02 PM Pressure channel 1 zero failed. 01:02 PM Pressure channel 1 zeroed. 01:03 PM Hair removed from procedure site in holding area using clippers. Bilateral groin prepped with Chloraprep by Chandler, Rachel RT (R), safety strap applied then patient was draped. Skin intact. tsites 01:03 PM Time out performed according to hospital policy tsites 01:03 PM Time: 13:03 Versed 2 mg Intravenous Given by Pastor Hernandez RN tsites 01:03 PM Time: 13:03 Fentanyl 50 mcg Intravenous Given by Pastor Hernandez RN tsites 01:03 PM Time: 13:03 20 ml Lidocaine 2% to right groin Subcutaneous Given by Meenu Tay MD, [facility] tsites 01:04 PM Access obtained by percutaneous puncture. 6Fr 10cm Terumo [place] sheath placed in right Femoral artery. [id number] tsites 01:04 PM HR=96 bpm, IEWY=421/76 mmhg, LkS6=936 %, Resp=21 B/min 01:05 PM 5Fr FL 4 catheter inserted over the wire [facility] tsites 01:05 PM 0.035 145cm Navilyst 3mmJ wire [id number] tsites 01:05 PM LCA angiography performed in multiple views. tsites 01:06 PM Recorded Pressure: Ao, HR=88, Condition=Condition 1 (Aorta) Ao 184/73/101 01:08 PM wire reinserted catheter removed tsites 01:09 PM RCA angiography performed in multiple views. tsites 01:09 PM Recorded Pressure: Ao, YX=289, Condition=Condition 1 (Aorta) Ao 120/50/88 01:09 PM wire reinserted catheter removed tsites 01:09 PM HR=99 bpm, HCBY=466/79 mmhg, MkQ5=855.0 %, Resp=21 B/min 01:10 PM Coronary Dominance: right tsites 01:10 PM 5Fr Pigtail catheter inserted over the wire [facility] tsites 01:10 PM Catheter selectively placed in left ventricle tsites 01:10 PM Bolus angiogram of left Ventricle complete: 8 ml/sec for a total of 24 mls tsites 01:10 PM Pressure channel 1 zeroed. 01:11 PM Recorded Pressure: LV, QD=277, Condition=Condition 1 (Left Ventricle) LV 120/1/21 01:11 PM Recorded Pressure: LV, Ao, CF=882, Condition=Condition 1 (Left Ventricle) LV 125/45/56, (Aorta) Ao 111/81/97 01:14 PM wire reinserted catheter removed tsites 01:14 PM HR=98 bpm, ELCE=174/89 mmhg, YqG1=126.0 %, Resp=17 B/min 01:15 PM PCI Status Emergency tsites 01:15 PM PCI Indication: PCI for high risk Non-STEMI or unstable angina tsites 01:16 PM 6Fr XB LAD 3.5 [place] Bright-Tip guide catheter was used to cannulate the PCI vessel successfully. reused? No tsites 01:16 PM Inflation device was opened. tsites 01:16 PM .014 [place]rowater 180cm guide wire across target lesion- successful. reused? No tsites 01:16 PM Recorded Pressure: Ao, HR=97, Condition=Condition 1 (Aorta) Ao 133/78/104 01:18 PM 3.5mm x 16mm Synergy drug-eluting stent across target lesion- successful Lot #[id number] tsites 01:20 PM Stent deployed @ 11 rafaela for 22 seconds tsites 01:20 PM HR=96 bpm, MGNU=011/134 mmhg, UsQ8=262 %, Resp=14 B/min 01:21 PM Balloon inflated @ 12 rafaela for 10 seconds tsites 01:22 PM Stent delivery system removed intact. tsites 01:23 PM Time: 13:22 Nitroglycerin 200 mcg Intracoronary Given by Meenu Tay MD, [facility] tsites 01:24 PM LCA angiography performed in multiple views. tsites 01:25 PM HR=96 bpm, BXGF=571/84 mmhg, SpO2=99.0 % 01:25 PM Catheter removed tsites : PM Bolus angiogram of right Femoral complete: 2 ml/sec for a total of 4 mls tsites : PM Procedure completed at 13:26 tsites : PM Sign out completed: Radiation Dose 348 mGy Fluoro Time: 4.7 Isovue 370 - 200ml contrast 151 ml given by Meenu Tay MD, [facility]. Complications: NoneCardiac Rehab Consult needed: YesConfirmed administered medications: Yes tsites 01:27 PM Isovue 370 - 200ml,1 Bottle(s) used. tsites :27 PM Sheath left in place to be pulled on floor/holding areaV+Pad tsites 01:27 PM Estimated Blood Loss: less than 20cc tsites 01:28 PM Post ECG NSR tsites : PM Post Blood Pressure 154/84 tsites :28 PM 13:28 Post Pulses Bilateral DP & PT 1+ tsites 01:28 PM Information taught Cardiac Cath and PCI tsites 01:28 PM Education needs Procedure, Plan of Care, and Responsibilities of Patient in Care tsites 01:28 PM Learning barriers :None tsites 01:28 PM Education Methods Verbal tsites 01:28 PM Education evaluation Able to repeat information tsites 01:29 PM Site status No bleeding/hematoma - Rt Groin as reported by Jannet Das RT at 13:28 tsites 01:29 PM Opsite applied tsites : PM Time: 13:29 Reopro Bolus: 9.2 ml Intravenous Given by Pastor Hernandez RN Almazan pump tsites 01:30 PM QT=031 bpm, ROKH=686/98 mmhg, VdX5=478 %, Resp=21 B/min 01:30 PM Time: 13:29 Brilinta 180 mg Orally Given by Pastor Hernandez RN tsites 01:31 PM Plavix, Effient or Brilinta given Yes tsites 01:31 PM Delay to floor No tsites 01:31 PM Patient out of room: 13:31 tsites 01:31 PM Family placed in consult room. tsites 01:32 PM Lesion found in LMCA. Pre Stenosis: 15 Pre MICHELET Flow: tsites 01:32 PM Lesion found in Proximal LAD. Pre Stenosis: 80 Pre MICHELET Flow: tsites 01:32 PM Left Main Coronary Artery with 15% stenosis tsites 01:33 PM Proximal Left Anterior Descending Coronary Artery with 80% stenosis. If graft is supplying this territory, 0 % stenosis. tsites 01:41 PM Report given to milagro KRAUS Pt taken to ICU Room #11. 13:41 tsites Complications Complication None Hemodynamics Pressures Site Systolic/A Wave Diastolic/V Wave Mean AO 184 73 101 AO 120 50 88 LV 120 1 21 LV 125 45 56 AO 111 81 97 AO 133 78 104 Post Procedure Information Blood Pressure: 154/84 mmHg Rhythm: NSR Post procedural instructions were given Closure Device Time Device Success/Fail 02/27/2017 1:31:00 PM Manual Compression Site Checks Time Location Status Staff Sheath In? Note 01:28 PM Rt Groin No bleeding/hematoma Jannet Das RT Pulses Time Site Pre-Procedure Post-Procedure Note Bilateral DP & PT 1+ 1:28:00 PM Bilateral DP & PT 1+ Updated by Rachel Arteaga RT (R) on 02/27/2017 1:42:06 PM Rachel Arteaga RT electronically signed on 02/27/2017 1:42:23 PM with status of Final
[2017-02-27] MEDS: Nicotine 14 MG PATCH.TD24 TD SCH (14:07)
--- NOTE | 2017-02-27 14:44 | Event Note ---
Date of Encounter: 02/27/17 Time of Encounter: 11:00 Discussed with EMILY in the [place] assessment and plan. Cardiology consulted for chest pain secondary to non-STEMI
[2017-02-28 04:55] LABS: Basophils % 0.2 %; Eosinophils # 0.1 K/mcL (0.0-0.6); Eosinophils % 1.5 %; Hematocrit 30.3 % (35.3-44.9); Hemoglobin 9.2 g/dL (11.5-15.4); Immature Granulocytes % 0.4 % (0-4); Lymphocytes # 1.9 K/mcL (0.6-4.6); Lymphocytes % 21.7 %; Mean Corpuscular HGB Conc 30.4 g/dL (31.6-35.5); Mean Corpuscular Hemoglobin 22.2 pg (28.0-33.3); Mean Platelet Volume 9.3 fL (9.4-12.4); Monocytes # 0.6 K/mcL (0.0-1.3); Monocytes % 6.5 %; Neutrophils # 6.2 K/mcL (1.6-8.9); Platelet Count 238 K/mcL (140-400); Red Blood Count 4.15 M/mcL (3.82-4.97); Red Cell Distribution Width 19.6 % (11.5-14.5); Segmented Neutrophils % 69.7 %
[2017-02-28 05:03] LABS: Hemoglobin A1C 5.4 %
[2017-02-28 05:08] LABS: Alanine Aminotransferase 34 Units/L (0-55); Albumin 2.9 g/dL (3.5-5.0); Alkaline Phosphatase 130 Units/L (38-126); Aspartate Amino Transferase 87 Units/L (5-34); BUN/Creatinine Ratio 19 (6-26); Bilirubin,Total 0.3 mg/dL (0.2-1.2); Blood Urea Nitrogen 13 mg/dL (7-20); Calcium 8.5 mg/dL (8.6-10.8); Carbon Dioxide 22 mEq/L (19-29); Chloride 109 mEq/L (98-109); Chol/HDL Ratio 3.5 (0-4.9); Cholesterol 152 mg/dL (< 200); Glucose 111 mg/dL (70-99); HDL Cholesterol 43 mg/dL (40-59); LDL Cholesterol,Calculated 87 mg/dL (0-99); Magnesium 1.8 mg/dL (1.6-2.6); Osmolality,Calculated 289 (280-300); Potassium 3.9 mEq/L (3.5-4.5); Sodium 139 mEq/L (136-145); Total Protein 5.9 g/dL (6.0-8.3); Triglycerides 111 mg/dL (< 150); eGFR For African Americans > 60 (> 60); eGFR For Non-African Americans > 60 (> 60)
[2017-02-28] MEDS: Aspirin Enteric Coated 81 MG Tablet PO SCH (08:21)
[2017-02-28] MEDS: Nicotine 14 MG PATCH.TD24 TD SCH (10:46)
[2017-02-28] MEDS: Isosorbide MONOnitrate (24 HR) 30 MG TAB.ER.24H PO SCH (13:03)
[2017-02-28] MEDS: *HR* Ticagrelor 90 MG TABLET PO SCH ×2 (13:03→20:57)
--- NOTE | 2017-02-28 13:06 | Cardiology Progress Note ---
Date of Encounter: 02/28/17 Time of Encounter: 12:30 Assessment and Plan (1) NSTEMI (non-ST elevated myocardial infarction) Current Visit: Yes Status: Acute Per cardiology: -Presented with chest pain. -S/p C yesterday with 80% proximal LAD stenosis with clot. TOM placed. -Patient reports 1/10 chest pain now. -ON asa, statin, plavix, beta nancy, chris inhibitor. -Patient educated on importance of dual anti-platelet therapy uninterrupted for at least one year. -TTE pending. -ECG today with SR, HR 80. T wave inversions noted in leads V2, V3, V4, V5, V6. ECG reviewed with . -Per discussion with , will start imdur and will switch plavix to brilinta 90mg BID first dose now. -Per discussion with , will start aggrastat drip. Will continue aggrastat drip for 6 hours. -Will continue to montior. (2) Tobacco abuse Current Visit: Yes Status: Chronic Per cardiology: -Admits to current smoking. -Nicotine patch ordered per primary service. -I spent 3 minutes reviewing smoking cessation education with patient. Discussion w patient/family: The assessment and plan as outlined above was discussed with the patient and/or family members who expressed understanding and agreement. All questions were answered. Thank you for involving us in the care of your patient. Please call with any questions. Discussed and reviewed with . Subjective Principal diagnosis: NSTEMI Interval history: Patient states pain is much improved since admission. Currently states has chest pain /. Denies issues walking or using right leg. Objective Vital Signs, Last 4 Hours Temp Pulse Resp BP Pulse Ox 02/28/17 12:55 97.9 F 02/28/17 12:00 85 18 109/47 94 02/28/17 10:00 90 18 106/47 94 General: Conversant, No Apparent Distress HEENT: Atraumatic, Normocephaly, Mucus Membranes Moist Neck: No JVD, Normal carotid pulses Cardiac: Reg Rate and Rhythm, Normal S1 and S2, No Murmur Lungs: Normal Breath Sounds, No Wheeze, Rales, Rhonchi Neuro: Alert and responsive, No focal deficits noted Abdomen: Soft, Non-Tender Skin: No rashes noted on visualized skin Musculoskeletal: No Chest Wall Tenderness, Other (Right groin access site without hematoma. ) Extremities: No Clubbing, No Cyanosis, No Edema, Normal Pulses Results 02/28/17 04:44 02/28/17 04:44 Lab Results Active Medications Acetaminophen (Tylenol) 650 mg PO Q6HR PRN PRN Reason: Mild Pain (1-3) Stop: 08/29/17 11:25 Hydrocodone Bitart/Acetaminophen ([place] 5-325 Mg) 1 tab PO Q4HR PRN PRN Reason: Moderate Pain (4-6) Stop: 08/29/17 11:25 Aspirin (Aspirin Ec) 81 mg PO DAILY [facility] Stop: 08/30/17 09:01 Last Admin: 02/28/17 08:21 Dose: 81 mg Atorvastatin Calcium (Lipitor) 80 mg PO HS [facility] Stop: 08/29/17 21:01 Last Admin: 02/27/17 23:44 Dose: 80 mg Carvedilol (Coreg) 6.25 mg PO BIDWM [facility] PRN Reason: Protocol Stop: 08/29/17 17:01 Last Admin: 02/28/17 08:21 Dose: 6.25 mg Sodium Chloride (0.9 % Sodium Chloride) 1,000 mls @ 75 mls/hr IVC .[id number] [facility] Stop: 08/29/17 09:46 Last Admin: 02/27/17 23:44 Dose: Not Given Isosorbide Mononitrate (Imdur) 30 mg PO DAILY [facility] Stop: 08/30/17 12:01 Last Admin: 02/28/17 13:03 Dose: 30 mg Levothyroxine Sodium (Synthroid) 150 mcg PO DAILY [facility] Stop: 08/30/17 09:01 Last Admin: 02/28/17 08:21 Dose: 150 mcg Lisinopril (Zestril) 2.5 mg PO DAILY [facility] PRN Reason: Protocol Stop: 08/29/17 14:01 Last Admin: 02/28/17 08:21 Dose: 2.5 mg Morphine Sulfate (Morphine Sulfate) 2 mg IVP Q4HR PRN PRN Reason: Severe Pain (7-10) Stop: 08/29/17 11:25 Last Admin: 02/27/17 12:07 Dose: 2 mg Naloxone HCl (Narcan) 0.4 mg IVP Q2MIN PRN PRN Reason: Opioid Reversal Stop: 08/29/17 11:25 Nicotine (Nicoderm) 14 mg TD DAILY [facility] PRN Reason: Protocol Stop: 08/29/17 12:01 Last Admin: 02/28/17 10:46 Dose: Not Given Nitroglycerin (Nitroglycerin) 0.4 mg SL Q5MIN PRN PRN Reason: Chest Pain Stop: 08/29/17 09:32 Last Admin: 02/27/17 10:24 Dose: 0.4 mg Ondansetron HCl (Zofran) 4 mg IVP Q8HR PRN PRN Reason: Nausea And Vomiting Stop: 08/29/17 11:25 Last Admin: 02/27/17 16:56 Dose: 4 mg Ticagrelor (Brilinta) 90 mg PO BID [facility] Stop: 08/30/17 12:16 Last Admin: 02/28/17 13:03 Dose: 90 mg Laboratory Tests 02/28/17 02/28/17 04:44 04:44 Hgb 9.2 L Creatinine 0.70 - Imaging and Cardiology Chest Xray: report reviewed Echo: pending Cardiac cath: report reviewed - EKG Interpretation EKG results cardiology: personally reviewed (ECG today with SR, HR 80. T wave inversion noted in leads V2, V3, V4, V5, V6.), other (Telemetry reviewed with average HR previous 12 hours noted to be 86, SR. PVCs noted.) Consult Discharge Plan - Plan Referrals: Onur Foley MD [Primary Care Provider] -
[2017-02-28] MEDS: 0.9 % Sodium Chloride 1,000 ML IVC SCH (13:11)
--- NOTE | 2017-02-28 13:15 | Electrocardiograph Report ---
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
--- NOTE | 2017-02-28 13:16 | Electrocardiograph Report ---
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
[2017-02-28] MEDS ORDERED: Tirofiban 12.5 MG/250ML 12.5 MG/250 ML BAG IVC SCH (13:30)
--- NOTE | 2017-02-28 13:55 | Internal Med Progress Note ---
Date of Encounter: 02/28/17 Time of Encounter: 07:30 - Assessment and plan (1) NSTEMI (non-ST elevated myocardial infarction) Current Visit: Yes Status: Acute Assessment and plan: S/P LHC and stent yesterday. Plan per cardiology. On Aggrastat at this time. (2) Anemia Current Visit: Yes Status: Suspected Assessment and plan: Monitor H/H. Check stool guiac. No prior lab for comparison in chart. Qualifiers: Anemia type: iron deficiency Iron deficiency anemia type: chronic blood loss Qualified Code(s): D50.0 - Iron deficiency anemia secondary to blood loss (chronic) (3) Thyroid disease Current Visit: Yes Status: Chronic Assessment and plan: Check free T4 (4) Tobacco abuse Current Visit: Yes Status: Chronic Assessment and plan: Cessation counselling. - Subjective Interval history: Ms Angelo is currently admitted for acute NSTEMI. She is s/p stent placement. She is still having slight chest pain and has been placed on Aggrastat per cardiology. She remains high risk due to potential for worsening cardiac status. Ms Angelo has had some mild chest pain and has been placed on Aggrastat. No dyspnea. No fever or chills. Slept OK. - Constitutional Vitals: Temp Pulse Resp BP Pulse Ox 97.9 F 89 18 109/47 94 02/28/17 12:55 02/28/17 12:00 02/28/17 12:00 02/28/17 12:00 02/28/17 12:00 General appearance: Present: cooperative, A&O X 3, pleasant, obese, answers questions appropriately - Head Head exam: Present: atraumatic, normocephalic - Eye Eye exam: Present: EOMI, conjuntiva pink - ENT ENT exam: Present: mucous membranes dry - Respiratory Respiratory exam: Present: CTAB. Absent: rales, rhonchi, wheezes - Cardiovascular Cardiovascular exam: Present: RRR. Absent: tachycardia - GI/Abdominal GI/Abdominal exam: Present: soft. Absent: tenderness - Extremities Exam Extremities exam: Present: warm. Absent: tenderness - Neurological Exam Neurological exam: Present: alert, oriented X3, no focal deficits - Skin Skin exam: Present: dry, warm. Absent: rash Internal Medicine: Result - Labs CBC & Chem 7: 02/28/17 04:44 02/28/17 04:44 Labs: Short CBC 02/28/17 Range/Units 04:44 WBC 8.9 (4.3-11.1) K/mcL Hgb 9.2 L (11.5-15.4) g/dL Hct 30.3 L (35.3-44.9) % Plt Count 238 (140-400) K/mcL Neutrophils # 6.2 (1.6-8.9) K/mcL BMP 02/28/17 04:44 Sodium 139 Potassium 3.9 Chloride 109 Carbon Dioxide 22 BUN 13 Creatinine 0.70 Glucose 111 H Calcium 8.5 L Cardiac Enzymes 02/27/17 02/27/17 Range/Units 15:22 20:52 Troponin I 5.33 H* 10.42 H* (0-0.03) ng/mL Liver Function 02/28/17 Range/Units 04:44 Total Bilirubin 0.3 (0.2-1.2) mg/dL AST 87 H (5-34) Units/L ALT 34 (0-55) Units/L Alkaline Phosphatase 130 H (38-126) Units/L Albumin 2.9 L (3.5-5.0) g/dL - ABG Interpretation ABG results: PT/INR, D-dimer PT 10.1 Seconds (9.4-12.1) 02/27/17 09:23 D-Dimer 295 ng/mLFEU (0-500) 02/27/17 09:23 Consult Discharge Plan - Plan Referrals: Onur Foley MD [Primary Care Provider] -
[2017-02-28] MEDS: Acetaminophen 325 MG TABLET PO PRN (18:02)
[2017-03-01] MEDS: 0.9 % Sodium Chloride 1,000 ML IVC SCH (00:25)
[2017-03-01 05:07] LABS: Basophils % 0.2 %; Eosinophils # 0.2 K/mcL (0.0-0.6); Eosinophils % 2.8 %; Hematocrit 30.6 % (35.3-44.9); Immature Granulocytes % 0.6 % (0-4); Lymphocytes # 1.6 K/mcL (0.6-4.6); Lymphocytes % 18.5 %; Mean Corpuscular HGB Conc 29.4 g/dL (31.6-35.5); Mean Corpuscular Hemoglobin 21.6 pg (28.0-33.3); Mean Corpuscular Volume 73.6 fL (83.0-100.0); Mean Platelet Volume 9.4 fL (9.4-12.4); Monocytes # 0.6 K/mcL (0.0-1.3); Monocytes % 7.2 %; Platelet Count 231 K/mcL (140-400); Red Blood Count 4.16 M/mcL (3.82-4.97); Red Cell Distribution Width 19.7 % (11.5-14.5); Segmented Neutrophils % 70.7 %
[2017-03-01 05:19] LABS: Alanine Aminotransferase 25 Units/L (0-55); Albumin/Globulin Ratio 1.1 (1.1-2.2); Alkaline Phosphatase 117 Units/L (38-126); Aspartate Amino Transferase 39 Units/L (5-34); BUN/Creatinine Ratio 18 (6-26); Bilirubin,Total 0.3 mg/dL (0.2-1.2); Blood Urea Nitrogen 12 mg/dL (7-20); Calcium 8.9 mg/dL (8.6-10.8); Carbon Dioxide 24 mEq/L (19-29); Chloride 110 mEq/L (98-109); Globulin 2.8 g/dL (2.4-3.5); Glucose 109 mg/dL (70-99); Osmolality,Calculated 288 (280-300); Sodium 139 mEq/L (136-145); Total Protein 5.8 g/dL (6.0-8.3); eGFR For African Americans > 60 (> 60); eGFR For Non-African Americans > 60 (> 60)
[2017-03-01] MEDS: Aspirin Enteric Coated 81 MG Tablet PO SCH (08:54)
[2017-03-01] MEDS: *HR* Ticagrelor 90 MG TABLET PO SCH (08:54)
[2017-03-01] MEDS: Isosorbide MONOnitrate (24 HR) 30 MG TAB.ER.24H PO SCH (08:54)
[2017-03-01] MEDS: Nicotine 14 MG PATCH.TD24 TD SCH (08:55)
--- NOTE | 2017-03-01 11:28 | Discharge Summary ---
Date of Encounter: 03/01/17 Time of Encounter: 13:55 - Discharge Diagnosis (1) NSTEMI (non-ST elevated myocardial infarction) Priority: Primary Status: Acute (2) CAD (coronary artery disease) Priority: Primary Status: Chronic Qualifiers: Coronary Disease-Associated Artery/Lesion type: [place] artery [place] vs. transplanted heart: [place] heart Associated angina: with unstable angina Qualified Code(s): I25.110 - Atherosclerotic heart disease of [place] coronary artery with unstable angina pectoris (3) Anemia Priority: Secondary Status: Suspected Qualifiers: Anemia type: iron deficiency Iron deficiency anemia type: chronic blood loss Qualified Code(s): D50.0 - Iron deficiency anemia secondary to blood loss (chronic) (4) Tobacco abuse Priority: Secondary Status: Chronic (5) Hypothyroid Priority: Secondary Status: Chronic Qualifiers: Hypothyroidism type: acquired Qualified Code(s): E03.9 - Hypothyroidism, unspecified - Discharge Medications Prescriptions: Nitroglycerin 0.4 mg SL Q5MIN PRN #1 bottle PRN Reason: Chest Pain Atorvastatin [Lipitor] 80 mg PO HS #60 tablet Carvedilol [Coreg] 6.25 mg PO BIDWM #60 tablet Lisinopril [Zestril] 2.5 mg PO DAILY #30 tablet Ticagrelor [Brilinta] 90 mg PO BID #60 tablet Home Medications: Levothyroxine Sodium 150 mcg PO DAILY 02/27/17 [History] Aspirin Enteric Coated [Aspirin EC] 81 mg PO DAILY tablet. 03/01/17 [Rx] Atorvastatin [Lipitor] 80 mg PO HS #60 tablet 03/01/17 [Rx] Carvedilol [Coreg] 6.25 mg PO BIDWM #60 tablet 03/01/17 [Rx] Lisinopril [Zestril] 2.5 mg PO DAILY #30 tablet 03/01/17 [Rx] Nicotine Patch [Nicoderm] 14 mg TD DAILY patch.td24 03/01/17 [Rx] Nitroglycerin 0.4 mg SL Q5MIN PRN #1 bottle 03/01/17 [Rx] Ticagrelor [Brilinta] 90 mg PO BID #60 tablet 03/01/17 [Rx] Allergies/Adverse Reactions: 3 Allergy/AdvReac Type Severity Reaction Status Date / Time No Known Allergies Allergy Verified 02/27/17 09:06 Procedures/tests Complete & Pending: Procedures Performed prior 72 hours Category Date Time Status ECG 12 lead ECG [ECG] Stat Y 02/27/17 13:46 Completed ECG 12 lead ECG [ECG] Stat Y 02/28/17 11:54 Completed - Notes to Outpatient Provider TSH low here. Med not adjusted due to acute illness. Date of admission: 02/27/17 13:41 Primary care physician: Onur Foley Consults: Cardiology Discharging clinician: Derek Duarte Anticipated date of discharge: 03/01/17 - Patient Status Disposition: Home, Self-Care Condition: Good Functional capacity at discharge: independent ambulation Overall status at discharge: patient is progressing back to baseline - Discharge Instructions Instructions: Myocardial Infarction (DC), Chest Pain (DC) Follow Up With: Onur Foley MD [Primary Care Provider] - Forms: Inpatient Work/School Release - Diet and Activity Activity: increase activity as tolerated Diet: low fat, low cholesterol, low salt diet Hospital course: Ms. Gi Warner is a 47 year old female with hx of perimenopause presented to ED with complaints of chest discomfort. She was evaluated in ED and taken for emergent LHC. Ms Gi Warner was taken for emergent LHC. She was found to have nearly occluded LAD with plaque rupture and clot present. Vessel was stented and she was admitted to ICU. She had restful initial night but was noted to have some chest discomfort the next morning. At that time she was placed on IV Aggrastat and Plavix was switched to Brlinta. Chest discomfort improved. On 03/01 she was feeling somewhat better but did develop some dsypnea felt related to Brlinta as well as sinus congestion. She was told this may last for the first few days and to call cardiology if persists. After evaluation she was felt stable for discharge home. She was counselled on smoking cessation and the need to take the prescribed medications and modify diet. at bedside and aware of recommendations as well. At this time she is afebrile with stable vitals and saturation 100% on RA. She is ready to discharge home. - Time Spent with Patient Total time spent providing and/or coordinating discharge services: 39min - Constitutional Vitals: Temp Pulse Resp BP Pulse Ox 98.4 F 88 18 112/66 94 03/01/17 11:27 03/01/17 08:00 03/01/17 08:00 03/01/17 08:00 03/01/17 08:00 General appearance: Present: cooperative, A&O X 3, pleasant, obese, answers questions appropriately - Head Head exam: Present: atraumatic, normocephalic - Eye Eye exam: Present: EOMI, conjuntiva pink - ENT ENT exam: Present: mucous membranes moist - Respiratory Respiratory exam: Present: CTAB. Absent: rales, rhonchi, wheezes - Cardiovascular Cardiovascular exam: Present: RRR. Absent: bradycardia, systolic murmur, tachycardia - GI/Abdominal GI/Abdominal exam: Present: soft. Absent: tenderness - Extremities Exam Extremities exam: Present: warm. Absent: tenderness - Neurological Exam Neurological exam: Present: alert, oriented X3, no focal deficits - Skin Skin exam: Present: dry, warm. Absent: rash
--- NOTE | 2017-03-01 12:31 | Electrocardiograph Report ---
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
[2017-03-01] MEDS: Acetaminophen 325 MG TABLET PO PRN (13:30)
[2017-03-01 13:55] VITALS: BP 118/76
--- NOTE | 2017-03-01 14:07 | Cardiology Progress Note ---
Date of Encounter: 03/01/17 Time of Encounter: 13:45 Assessment and Plan (1) NSTEMI (non-ST elevated myocardial infarction) Current Visit: Yes Status: Acute Per cardiology: -Presented with chest pain. -S/p [facility] with 80% proximal LAD stenosis with clot. TOM placed. -Patient denies chest pain overnight. -ON asa, statin, plavix, beta nancy, chris inhibitor. -Patient educated on importance of dual anti-platelet therapy uninterrupted for at least one year. -TTE with LVEF 55%. -Right groin access site without hematoma or ecchymosis. Right nataliia site management education given to patient. -Patient reports some mild shortness of breath. Lungs sounds clear. Suspect may be related to brilinta. -Patient educated to call cardiology for continued shortness of breath, can consider switching brilinta to plavix. -Cardiology will sign off and will follow in outpatient setting. Follow up set. (2) Tobacco abuse Current Visit: Yes Status: Chronic Per cardiology: -Admits to current smoking. -Nicotine patch ordered per primary service. -I spent 3 minutes reviewing smoking cessation education with patient. Discussion w patient/family: The assessment and plan as outlined above was discussed with the patient and/or family members who expressed understanding and agreement. All questions were answered. Thank you for involving us in the care of your patient. Please call with any questions. Discussed and reviewed with . Subjective Principal diagnosis: NSTEMI Interval history: Patient denies chest pain. Reports some mild shortness of breath. Denies issues using right leg or walking. Objective Vital Signs, Last 4 Hours Temp Pulse Resp BP Pulse Ox 03/01/17 13:53 90 18 118/76 100 03/01/17 11:43 84 18 107/64 95 03/01/17 11:27 98.4 F General: Conversant, No Apparent Distress HEENT: Atraumatic, Normocephaly, Mucus Membranes Moist Neck: No JVD, Normal carotid pulses Cardiac: Reg Rate and Rhythm, Normal S1 and S2, No Murmur Lungs: Normal Breath Sounds, No Wheeze, Rales, Rhonchi Neuro: Alert and responsive, No focal deficits noted Abdomen: Soft, Non-Tender Skin: No rashes noted on visualized skin Musculoskeletal: No Chest Wall Tenderness, Other (Right groin access site without hematoma or ecchymosis. ) Extremities: No Clubbing, No Cyanosis, No Edema, Normal Pulses Results 03/01/17 04:56 03/01/17 04:56 Lab Results Impressions Echocardiogram 02/27/17 11:34 Impressions: LVEF 55%. No significant valvular dysfunction. Estimated RVSP was 20 mmHg. Mild segmental left ventricular systolic dysfunction in volving the apex Findings: Study Quality * Technically adequate exam. ECG Findings * Normal sinus rhythm. Left Ventricle * LVEF 55%. * Mild segmental left ventricular systolic dysfunction. * Mild left ventricular diastolic dysfunction. * There is no LV thrombus. Right Ventricle * Normal right ventricular structure and function. Left Atrium * Normal left atrial size. Right Atrium * Normal right atrial size. Aortic Valve * Trileaflet aortic valve with normal function. Mitral Valve * Normal mitral valve structure and function. Tricuspid Valve * Normal tricuspid valve structure and function. Aorta * Normally sized aortic root. Pericardium * The pericardium appears normal. IVC * Normal IVC dimensions and inspiratory collapse. Active Medications Acetaminophen (Tylenol) 650 mg PO Q6HR PRN PRN Reason: Mild Pain (1-3) Stop: 08/29/17 11:25 Last Admin: 03/01/17 13:30 Dose: 650 mg Hydrocodone Bitart/Acetaminophen ([place] 5-325 Mg) 1 tab PO Q4HR PRN PRN Reason: Moderate Pain (4-6) Stop: 08/29/17 11:25 Aspirin (Aspirin Ec) 81 mg PO DAILY [facility] Stop: 08/30/17 09:01 Last Admin: 03/01/17 08:54 Dose: 81 mg Atorvastatin Calcium (Lipitor) 80 mg PO HS [facility] Stop: 08/29/17 21:01 Last Admin: 02/28/17 20:57 Dose: 80 mg Carvedilol (Coreg) 6.25 mg PO BIDWM [place] PRN Reason: Protocol Stop: 08/29/17 17:01 Last Admin: 03/01/17 08:54 Dose: 6.25 mg Sodium Chloride (0.9 % Sodium Chloride) 1,000 mls @ 75 mls/hr IVC .[id number] [facility] Stop: 08/29/17 09:46 Last Admin: 03/01/17 00:25 Dose: Not Given Isosorbide Mononitrate (Imdur) 30 mg PO DAILY [facility] Stop: 08/30/17 12:01 Last Admin: 03/01/17 08:54 Dose: 30 mg Levothyroxine Sodium (Synthroid) 150 mcg PO DAILY [facility] Stop: 08/30/17 09:01 Last Admin: 03/01/17 08:54 Dose: 150 mcg Lisinopril (Zestril) 2.5 mg PO DAILY [place] PRN Reason: Protocol Stop: 08/29/17 14:01 Last Admin: 03/01/17 08:54 Dose: 2.5 mg Morphine Sulfate (Morphine Sulfate) 2 mg IVP Q4HR PRN PRN Reason: Severe Pain (7-10) Stop: 08/29/17 11:25 Last Admin: 02/27/17 12:07 Dose: 2 mg Naloxone HCl (Narcan) 0.4 mg IVP Q2MIN PRN PRN Reason: Opioid Reversal Stop: 08/29/17 11:25 Nicotine (Nicoderm) 14 mg TD DAILY [place] PRN Reason: Protocol Stop: 08/29/17 12:01 Last Admin: 03/01/17 08:55 Dose: 14 mg Nitroglycerin (Nitroglycerin) 0.4 mg SL Q5MIN PRN PRN Reason: Chest Pain Stop: 08/29/17 09:32 Last Admin: 02/27/17 10:24 Dose: 0.4 mg Ondansetron HCl (Zofran) 4 mg IVP Q8HR PRN PRN Reason: Nausea And Vomiting Stop: 08/29/17 11:25 Last Admin: 02/27/17 16:56 Dose: 4 mg Ticagrelor (Brilinta) 90 mg PO BID [place] Stop: 08/30/17 12:16 Last Admin: 03/01/17 08:54 Dose: 90 mg Laboratory Tests 03/01/17 03/01/17 04:56 04:56 Hgb 9.0 L Creatinine 0.68 - Imaging and Cardiology Chest Xray: report reviewed Echo: report reviewed Cardiac cath: report reviewed - EKG Interpretation EKG results cardiology: other (Telemetry reviewed with average HR previous 12 hours noted to be 84, sinus rhythm. PVCs and PACs noted.) Consult Discharge Plan - Plan Referrals: Onur Foley MD [Primary Care Provider] - Prescriptions: Nitroglycerin 0.4 mg SL Q5MIN PRN #1 bottle PRN Reason: Chest Pain Atorvastatin [Lipitor] 80 mg PO HS #60 tablet Carvedilol [Coreg] 6.25 mg PO BIDWM #60 tablet Lisinopril [Zestril] 2.5 mg PO DAILY #30 tablet Ticagrelor [Brilinta] 90 mg PO BID #60 tablet
--- NOTE | 2017-03-02 01:58 | Electrocardiograph Report ---
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
--- NOTE | 2017-03-02 14:49 | Electrocardiograph Report ---
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
== END 2017-03-01 14:45 | disposition home or self-care (01) | DRG 247 ==
LOC: EMEROO 09:02 → 2ANU 09:02 → ICNU 13:40 → SUATTDRO 13:41
PROVIDERS: ADMIT Nurse Practitioner Family; ATTEND Internal Medicine

== ENCOUNTER 2021-08-02 18:26 | Inpatient (IN) ==
[2021-08-02 19:24] LABS: Hematocrit 19.1 % (35.3-44.9); Mean Corpuscular Volume 66.6 fL (83.0-100.0); Mean Platelet Volume 9.8 fL (9.4-12.4); Red Blood Count 2.87 M/mcL (3.82-4.97)
[2021-08-02 19:26] LABS: Mean Corpuscular HGB Conc 25.1 g/dL (31.6-35.5); Mean Corpuscular Hemoglobin 16.7 pg (28.0-33.3); Platelet Count 332 K/mcL (140-400); Red Cell Distribution Width 22.9 % (11.5-14.5); White Blood Count 9.8 K/mcL (4.3-11.1)
[2021-08-02 19:32] LABS: Hemoglobin 4.8 g/dL (11.5-15.4); Prothrombin Time 10.9 Seconds (9.4-12.1)
[2021-08-02 19:34] LABS: Activated Partial Thrombo Time 28.7 Seconds (26.0-36.0)
[2021-08-02 19:38] LABS: Alanine Aminotransferase 12 Units/L (7-52); Albumin 4.1 g/dL (3.5-5.7); Alkaline Phosphatase 134 Units/L (34-104); Aspartate Amino Transferase 15 Units/L (13-39); BUN/Creatinine Ratio 22 (6-26); Bilirubin,Total 0.4 mg/dL (0.3-1.0); Blood Urea Nitrogen 13 mg/dL (6-20); Calcium 9.2 mg/dL (8.6-10.3); Carbon Dioxide 23 mEq/L (23-29); Chloride 104 mEq/L (98-107); Globulin 2.1 g/dL (2.4-3.5); Glucose 103 mg/dL (70-105); Osmolality,Calculated 280 (280-300); Potassium 3.5 mEq/L (3.5-5.1); Sodium 135 mEq/L (136-145); Total Protein 6.2 g/dL (6.4-8.9); eGFR For African Americans > 60 (> 60); eGFR For Non-African Americans > 60 (> 60)
[2021-08-02] MEDS ORDERED: 0.9 % Sodium Chloride 500 ML ONE (20:48)
[2021-08-02] MEDS ORDERED: Melatonin 3 MG TABLET PO PRN (22:24)
[2021-08-02] MEDS ORDERED: Naloxone 0.4 MG/ML INJ IVP PRN (22:24)
[2021-08-02] MEDS ORDERED: Ondansetron ODT 4 MG TAB.RAPDIS SL PRN (22:24)
[2021-08-02] MEDS ORDERED: *HR* OxyCODONE Immed Rel 5 MG TABLET PO PRN (22:24)
[2021-08-02] MEDS ORDERED: *HR* HYDROcodone/Acet 5/325 mg TABLET PO PRN (22:24)
[2021-08-03] MEDS: Acetaminophen 325 MG TABLET PO PRN ×2 (00:47→16:57)
[2021-08-03 01:03] LABS: Basophils % 0.2 %; Eosinophils % 0.7 %; Hemoglobin 6.1 g/dL (11.5-15.4); Immature Granulocytes % 2.1 % (0-4); Lymphocytes # 0.6 K/mcL (0.6-4.6); Mean Corpuscular HGB Conc 26.5 g/dL (31.6-35.5); Mean Corpuscular Hemoglobin 19.2 pg (28.0-33.3); Mean Corpuscular Volume 72.3 fL (83.0-100.0); Mean Platelet Volume 9.7 fL (9.4-12.4); Monocytes % 0.5 %; Platelet Count 204 K/mcL (140-400); Red Blood Count 3.18 M/mcL (3.82-4.97); Red Cell Distribution Width 25.9 % (11.5-14.5); Segmented Neutrophils % 86.5 %; White Blood Count 5.8 K/mcL (4.3-11.1)
[2021-08-03 01:21] LABS: % Iron Saturation 4 % (15-50); Iron 26 mcg/dL (50-170); Transferrin 455 mg/dL (203-362)
[2021-08-03 01:24] LABS: Alanine Aminotransferase 11 Units/L (7-52); Albumin 3.7 g/dL (3.5-5.7); Albumin/Globulin Ratio 1.8 (1.1-2.2); Alkaline Phosphatase 132 Units/L (34-104); Aspartate Amino Transferase 18 Units/L (13-39); BUN/Creatinine Ratio 21 (6-26); Bilirubin,Total 0.5 mg/dL (0.3-1.0); Blood Urea Nitrogen 12 mg/dL (6-20); Calcium 8.7 mg/dL (8.6-10.3); Carbon Dioxide 20 mEq/L (23-29); Chloride 106 mEq/L (98-107); Chol/HDL Ratio 2.3 (0-4.9); Cholesterol 84 mg/dL (< 200); Globulin 2.1 g/dL (2.4-3.5); Glucose 100 mg/dL (70-105); HDL Cholesterol 36 mg/dL (40-59); LDL Cholesterol,Calculated 33 mg/dL (< 100); Magnesium 1.4 mg/dL (1.6-2.6); Osmolality,Calculated 284 (280-300); Phosphorous 2.6 mg/dL (2.7-4.5); Potassium 3.3 mEq/L (3.5-5.1); Sodium 137 mEq/L (136-145); Total Protein 5.8 g/dL (6.4-8.9); Triglycerides 75 mg/dL (< 150); eGFR For African Americans > 60 (> 60); eGFR For Non-African Americans > 60 (> 60)
[2021-08-03 01:46] LABS: Anisocytosis 2+ (Not Present); Hypochromasia Present (Not Present)
[2021-08-03 01:47] LABS: Folate 10.2 ng/mL (3.0-16.0); Platelet Estimate Normal (Normal); Poikilocytosis 1+ (Not Present)
[2021-08-03 02:03] LABS: Thyroid Stimulating Hormone 41.304 mcIU/mL (0.340-5.600)
[2021-08-03 03:01] LABS: Alanine Aminotransferase 12 Units/L (7-52); Albumin 4.4 g/dL (3.5-5.7); Albumin/Globulin Ratio 1.8 (1.1-2.2); Alkaline Phosphatase 145 Units/L (34-104); Aspartate Amino Transferase 18 Units/L (13-39); BUN/Creatinine Ratio 19 (6-26); Bilirubin,Total 0.3 mg/dL (0.3-1.0); Blood Urea Nitrogen 12 mg/dL (6-20); Calcium 9.5 mg/dL (8.6-10.3); Carbon Dioxide 18 mEq/L (23-29); Chloride 106 mEq/L (98-107); Chol/HDL Ratio 2.3 (0-4.9); Cholesterol 109 mg/dL (< 200); Globulin 2.4 g/dL (2.4-3.5); Glucose 95 mg/dL (70-105); HDL Cholesterol 47 mg/dL (40-59); LDL Cholesterol,Calculated 42 mg/dL (< 100); Magnesium 1.8 mg/dL (1.6-2.6); Osmolality,Calculated 288 (280-300); Phosphorous 3.3 mg/dL (2.7-4.5); Potassium 3.7 mEq/L (3.5-5.1); Sodium 139 mEq/L (136-145); Total Protein 6.8 g/dL (6.4-8.9); Triglycerides 101 mg/dL (< 150); eGFR For African Americans > 60 (> 60); eGFR For Non-African Americans > 60 (> 60)
[2021-08-03 06:37] LABS: Bilirubin,Urine Negative (Negative); Blood,Urine Large (Negative); Clarity,Urine Clear (Clear); Color,Urine Light-Yellow (Yellow); Glucose,Urine (UA) Normal (Normal); Ketones,Urine Negative (Negative); Leukocyte Esterase,Urine Negative (Negative); Nitrite,Urine Negative (Negative); PH,Urine 6.5 pH Units (5.0-8.0); Protein,Urine Negative (Neg-Trace); Urobilinogen,Urine Normal (Normal)
[2021-08-03 06:41] LABS: Hematocrit 21.3 % (35.3-44.9); Mean Corpuscular HGB Conc 27.2 g/dL (31.6-35.5); Mean Corpuscular Hemoglobin 18.8 pg (28.0-33.3); Mean Corpuscular Volume 68.9 fL (83.0-100.0); Platelet Count 234 K/mcL (140-400); Red Blood Count 3.09 M/mcL (3.82-4.97); Red Cell Distribution Width 25.4 % (11.5-14.5); White Blood Count 13.5 K/mcL (4.3-11.1)
[2021-08-03 06:45] LABS: Hemoglobin 5.8 g/dL (11.5-15.4)
[2021-08-03] MEDS ORDERED: Cyanocobalamin (B-12) 1,000 MCG/ML VIAL SQ ONE (07:50)
[2021-08-03] MEDS ORDERED: 0.9 % Sodium Chloride 250 ML ONE ×2 (08:50→16:27)
[2021-08-03] MEDS: carvediloL 6.25 MG TABLET PO SCH ×2 (09:14→16:40)
[2021-08-03] MEDS: lisinopriL 5 MG TABLET PO SCH (09:14)
[2021-08-03 15:16] LABS: Bilirubin,Indirect 0.3 mg/dL (0.0-1.0)
[2021-08-03] MEDS ORDERED: Ketorolac 30 MG/ML VIAL IVP PRN (19:48)
[2021-08-03 22:26] LABS: Hematocrit 24.3 % (35.3-44.9)
[2021-08-04 02:25] LABS: Basophils # 0.1 K/mcL (0.0-0.2); Basophils % 0.6 %; Eosinophils # 0.3 K/mcL (0.0-0.6); Eosinophils % 2.9 %; Hematocrit 25.4 % (35.3-44.9); Hemoglobin 7.2 g/dL (11.5-15.4); Immature Granulocytes % 0.5 % (0-4); Lymphocytes # 1.4 K/mcL (0.6-4.6); Lymphocytes % 16.2 %; Mean Corpuscular HGB Conc 28.3 g/dL (31.6-35.5); Mean Corpuscular Hemoglobin 20.7 pg (28.0-33.3); Mean Platelet Volume 9.9 fL (9.4-12.4); Monocytes # 0.3 K/mcL (0.0-1.3); Monocytes % 3.1 %; Neutrophils # 6.5 K/mcL (1.6-8.9); Nucleated Red Blood Cells 0.7 /100 WBC (0); Platelet Count 202 K/mcL (140-400); Red Blood Count 3.48 M/mcL (3.82-4.97); Red Cell Distribution Width 25.1 % (11.5-14.5); Segmented Neutrophils % 76.7 %; White Blood Count 8.5 K/mcL (4.3-11.1)
[2021-08-04 02:29] LABS: Hypochromasia Present (Not Present); Platelet Estimate Normal (Normal)
[2021-08-04 02:40] LABS: BUN/Creatinine Ratio 16 (6-26); Blood Urea Nitrogen 9 mg/dL (6-20); Calcium 8.5 mg/dL (8.6-10.3); Carbon Dioxide 23 mEq/L (23-29); Chloride 110 mEq/L (98-107); Glucose 117 mg/dL (70-105); Osmolality,Calculated 290 (280-300); Potassium 3.8 mEq/L (3.5-5.1); Sodium 140 mEq/L (136-145); eGFR For African Americans > 60 (> 60); eGFR For Non-African Americans > 60 (> 60)
[2021-08-04 07:58] VITALS: PULSE 84; TEMP 98.7; O2SAT 97
[2021-08-04 08:04] VITALS: BP 126/85
[2021-08-04] MEDS: lisinopriL 5 MG TABLET PO SCH (08:10)
[2021-08-04] MEDS: carvediloL 6.25 MG TABLET PO SCH (08:10)
[2021-08-04] MEDS ORDERED: Cyanocobalamin (B-12) 1,000 MCG/ML VIAL SQ SCH (09:00)
== END 2021-08-04 10:59 | disposition home or self-care (01) | DRG 812 ==
LOC: 2NENU 18:26 → EMEROOARM 18:26 → SUATTDRO 22:33 → 2NENU 23:40
PROVIDERS: ADMIT Internal Medicine; ATTEND Internal Medicine